=== PATIENT | female | born 1960 | race Caucasian/White ===

== ENCOUNTER 2018-05-16 07:41 | Outpatient (CLI) | payer BC ==
--- NOTE | 2018-05-16 10:11 | ULT ---
ULTRASOUND ABDOMEN COMPLETE: INDICATIONS: Abdominal pain. Palpable mass. TECHNIQUE: Melton-scale ultrasound evaluation of the liver, gallbladder, spleen, pancreas, common bile duct, kidne ys, abdominal aorta, and inferior vena cava (IVC). FINDINGS: No focal hepatic lesion. The gallbladder is not visualized. No overt hydronephrosis of either kidne y. At the site of palpable concern, infrasternal region, there is a focus of altered echotexture, which is heterogeneous and somewhat ill-defined, nonspecific. No abdominal ascites is seen. IMPRESSION: Mass-like, ill-defined region of heterogeneous echotexture at the site of palpable concern, inferior to the sternum. Dedicated CT exam with and without contrast is recommended. CODE T POS: [facility]
--- NOTE | 2018-05-16 12:23 | CT ---
CT ABDOMEN AND PELVIS WITH AND WITHOUT CONTRAST: History: Abdominal pain. Crohn's disease. Comparison: CT angiography, 02-18-16. FINDINGS: Lung bases are clear. No pericardial effusion. Prior cholecystectomy. There is some subtle edema in the proximal small bowel mesentery. There are al so mild increased lymph nodes in the proximal small bowel mesentery. This is unchanged. There is moderate diverticular disease of the sigmoid colon without active current inflammation. Ther e is mild fatty infiltration of the terminal ileum and ascending colon. There is mild hyper enhanceme nt of the terminal 3 cm of the terminal ileum. No evidence for fistula. No evidence for sinus tract. Mild increased mesenteric fat with hyperemia of the mesenteric vessels. No hydronephrosis. The spleen, pancreas, adrenal glands are unremarkable, as well as the liver. IMPRESSION: Mild terminal ileitis. No evidence for a stricture, ulceration, or sinus tract formation. No extraint estinal manifestations of Crohn's disease. POS: [facility]
[2018-05-16] MEDS ORDERED: Iopamidol 370 76% 100 ML VIAL ONE (12:38)
== END 2018-05-16 07:42 | disposition home or self-care (01) ==
LOC: ULT 07:41
PROVIDERS: ATTEND Internal Medicine Gastroenterology
DX: R10.84 Generalized abdominal pain (principal); K50.00 Crohn's disease of small intestine without complications; R19.06 Epigastric swelling, mass or lump
CPT/HCPCS: 74178; 76700

== ENCOUNTER 2018-11-15 07:28 | Outpatient (CLI) | payer BC ==
--- NOTE | 2018-11-15 07:54 | RAD ---
Cervical spine 4 views HISTORY: Neck pain. FINDINGS: Straightening of the normal lordotic curvature. Disc space narrowing at the C5-6 level. Mil d osteophytosis throughout the vertebral bodies and facets. Vertebral body heights are maintained. No acute fracture or dislocation. Cervicothoracic junction is intact. IMPRESSION: Mild osseous degenerative changes of the cervical spine. No acute osseous abnormalities a re demonstrated.
--- NOTE | 2018-11-15 09:25 | CT ---
CT CHEST WITHOUT CONTRAST: Multiple axial tomograms were obtained through the chest without IV enhancement. A low-dose screenin g protocol was followed. INDICATION: Tobacco abuse. Long history of smoking. There is chronic-appearing stranding seen in both upper lobes. No evidence of pulmonary mass or nodu le. No infiltrate or effusion. Mediastinum unremarkable with no evidence of adenopathy. Images thr ough the upper abdomen unremarkable. Osseous structures unremarkable. IMPRESSION: Lung RADS 2. Recommend yearly low-dose screening chest CT. POS: [facility]
== END 2018-11-15 07:29 | disposition home or self-care (01) ==
LOC: CT 07:28
PROVIDERS: ATTEND Family Medicine
DX: F17.210 Nicotine dependence, cigarettes, uncomplicated (principal); M50.90 Cervical disc disorder, unspecified, unspecified cervical region; M47.812 Spondylosis without myelopathy or radiculopathy, cervical region
CPT/HCPCS: 72040; G0297

== ENCOUNTER 2019-11-20 10:43 | Outpatient (CLI) | payer BC ==
--- NOTE | 2019-11-20 11:32 | CT ---
EXAM: CT chest without contrast per low-dose cancer screening protocol HISTORY: History of smoking and nicotine dependence COMPARISON: 11/15/2018 TECHNIQUE: Multiple contiguous axial images were obtained in a CT of the chest without contrast per l ow-dose cancer screening protocol. Sagittal and coronal reformats were performed. FINDINGS: Pulmonary nodules: No suspicious pulmonary nodules are seen. No focal infiltrates are seen. Scarring is seen in the lung apices. Pleural space: No pneumothorax or pleural effusion are seen. Heart: The heart is normal in size. Mediastinum: No hilar or mediastinal lymphadenopathy appreciated on this limited noncontrast examinat ion. Bones: Degenerative changes in the spine.. Visualized subdiaphragmatic structures: Unremarkable. IMPRESSION: Lung RADS category 1-negative.
== END 2019-11-20 10:44 | disposition home or self-care (01) ==
LOC: BICCT 10:43
PROVIDERS: ATTEND Family Medicine
DX: Z12.2 Encounter for screening for malignant neoplasm of respiratory organs (principal); F17.210 Nicotine dependence, cigarettes, uncomplicated
CPT/HCPCS: G0297

== ENCOUNTER 2020-04-17 08:34 | Outpatient (CLI) | payer BC ==
--- NOTE | 2020-04-17 13:30 | NM ---
RADIONUCLIDE GASTRIC EMPTYING SCAN: Date: 04/17/2020 HISTORY: Epigastric pain. RADIOPHARMACEUTICAL: 2 mCi technetium-99m sulfur colloid administered orally in scrambled eggs. FINDINGS: There is 73% emptying of the ingested gastric contents at 1 hour, 95% emptying at 2 hours, and 100% e mptying at 3 hours. The calculated gastric emptying halftime measures 39 minutes. IMPRESSION: Rapid gastric emptying. POS: [facility]
== END 2020-04-17 08:35 | disposition home or self-care (01) ==
LOC: NM 08:34
PROVIDERS: ATTEND Internal Medicine Gastroenterology
DX: R10.13 Epigastric pain (principal); K21.9 Gastro-esophageal reflux disease without esophagitis
CPT/HCPCS: 78264; A9541

== ENCOUNTER 2020-06-09 09:01 | Outpatient (CLI) | payer BC ==
[2020-06-10 07:03] LABS: SARS-CoV-2 PCR by NAA Not Detected (NotDetected)
== END 2020-06-09 09:02 | disposition home or self-care (01) ==
LOC: LABBT 09:01
PROVIDERS: ATTEND Internal Medicine Gastroenterology
DX: Z20.822 Contact with and (suspected) exposure to COVID-19 (principal)
CPT/HCPCS: 87635; U0003; U0005

== ENCOUNTER → 2020-06-13 | Day surgery (SDC) | payer BC ==
[2020-06-12 09:22] VITALS: BMI 32.5
[~2020-06-13] MED LIST: Fentanyl 100 MCG/2 ML VIAL ONE; Magnevist 469MG/ML 20 ML VIAL ONE; Midazolam HCl 2 mg/2 ml Vial ONE; Ondansetron PF 4 MG/2 ML Vial ONE
[2020-06-13 11:43] LABS: Calc. Creatinine Clearance 128 mL/min (70-130)
--- NOTE | 2020-06-13 16:15 | MRI ---
MRI ABDOMEN WITH AND WITHOUT IV CONTRAST: Date: 06/13/2020 HISTORY: 59-year-old female with epigastric pain - intractable. Chronic change pain. FINDINGS: The liver, spleen, pancreas, adrenal glands, and left kidney appear normal. There is a tiny cyst in t he inferomedial cortex of the right kidney with low T1/high T2 signal, and no postcontrast enhancemen t. The biliary tract and pancreatic duct are normal. The patient is post cholecystectomy. No free fluid or lymphadenopathy seen in the abdomen. The bone marrow signal is normal. IMPRESSION: No significant abnormalities are seen. POS: [facility]
== END ==
LOC: SDC/OP 10:06
PROVIDERS: ATTEND Internal Medicine Gastroenterology
DX: R10.13 Epigastric pain (principal); K59.00 Constipation, unspecified; Z88.1 Allergy status to other antibiotic agents; Z88.5 Allergy status to narcotic agent; Z91.040 Latex allergy status
CPT/HCPCS: 74183; 82565; J2250; J2405; J3010

== ENCOUNTER 2020-12-14 15:43 | Emergency (ER) | payer BC ==
[2020-12-14 17:06] LABS: #Eosinphils 0.1 thou/uL (0.0-0.7); #Lymphocytes 1.7 thou/uL (1.20-3.40); #Monocytes 0.8 thou/uL (0.11-0.59); #Neutrophils 7.8 thou/uL (1.40-6.50); %Basophils 0.4 % (0.0-1.0); %Eosinophils 0.8 % (0.0-10.0); %Lymphocytes 16.4 % (21.0-51.0); %Monocytes 7.6 % (0.0-10.0); %Neutrophils 74.8 % (42.0-75.0); Hemoglobin 13.5 g/dL (12.0-16.0); Mean Corpuscular HGB CONC 35.2 g/dL (32.0-36.0); Mean Corpuscular Hemoglobin 31.7 pg (27.0-31.0); Mean Platelet Volume 6.2 fL (7.4-10.4); Platelet Count 347 thou/uL (130-400); RBC Distribution Width 11.8 % (11.5-14.5); Red Blood Cell (RBC) Count 4.28 mill/uL (4.20-5.40); White Blood Cell (WBC) Count 10.4 thou/uL (4.8-10.8)
[2020-12-14 17:24] LABS: Anion Gap 11 mmol/L (10-20); BUN (Urea Nitrogen) 10 mg/dL (9.8-20.1); Calc. Creatinine Clearance 0 mL/min (70-130); Calcium 9.3 mg/dL (7.8-10.44); Carbon Dioxide 25 mmol/L (22-29); Chloride 103 mmol/L (98-107); Glucose 99 mg/dL (70-105); Potassium 3.9 mmol/L (3.5-5.1); Sodium 135 mmol/L (136-145)
[2020-12-14 17:54] LABS: Bacteria/HPF None Seen HPF (None Seen); Bilirubin Negative (Negative); Blood, Urine Trace (Negative); Clarity Clear (Clear); Glucose, Urine (Dipstick) Normal (Negative); Ketone, Urine Negative (Negative); Leukocyte Negative Leu/uL (Negative); Nitrite Negative (Negative); Protein, Urine (Dipstick) Negative (Neg-Trace); RBC/HPF 0-3 HPF (0-3); Specific Gravity, Urine 1.012 (1.002-1.036); Squamous Epithelial 0-3 HPF (0-3); Urobilinogen Normal mg/dL (Less than 2); WBC/HPF 0-3 HPF (0-3); pH, Urine 5.5 (5.0-9.0)
== END 2020-12-14 23:40 | disposition left against medical advice (07) ==
LOC: ERS 15:43
DX: R10.32 Left lower quadrant pain (principal); K21.9 Gastro-esophageal reflux disease without esophagitis; F17.210 Nicotine dependence, cigarettes, uncomplicated; Z79.899 Other long term (current) drug therapy
CPT/HCPCS: 36415; 80048; 81003; 81015; 83690; 85025; 99284

== ENCOUNTER 2021-02-18 10:45 | Outpatient (CLI) | payer BC | END 2021-02-18 10:46 | disposition home or self-care (01) | LOC: BICMAMMO 10:45 | PROVIDERS: ATTEND Family Medicine | DX: Z12.31 Encounter for screening mammogram for malignant neoplasm of breast (principal) | CPT/HCPCS: 77063; 77067 ==

== ENCOUNTER 2021-02-18 11:16 | Outpatient (CLI) | payer BC | END 2021-02-18 11:17 | disposition home or self-care (01) | LOC: BICCT 11:16 | PROVIDERS: ATTEND Family Medicine | DX: Z12.2 Encounter for screening for malignant neoplasm of respiratory organs (principal); F17.210 Nicotine dependence, cigarettes, uncomplicated | CPT/HCPCS: 71271 ==

== ENCOUNTER 2022-03-12 10:10 | Outpatient (CLI) | payer BC | END 2022-03-12 10:11 | disposition home or self-care (01) | LOC: BICCT 10:10 | PROVIDERS: ATTEND Family Medicine | DX: Z12.2 Encounter for screening for malignant neoplasm of respiratory organs (principal); F17.210 Nicotine dependence, cigarettes, uncomplicated | CPT/HCPCS: 71271 ==

== ENCOUNTER 2023-01-24 14:17 | Outpatient (CLI) | payer BC | END 2023-01-24 14:18 | disposition home or self-care (01) | LOC: BICULT 14:17 | PROVIDERS: ATTEND Internal Medicine | DX: R22.1 Localized swelling, mass and lump, neck (principal) | CPT/HCPCS: 76536 ==

== ENCOUNTER 2023-03-16 13:53 | Outpatient (CLI) | payer BC | END 2023-03-16 13:54 | disposition home or self-care (01) | LOC: BICCT 13:53 | PROVIDERS: ATTEND Internal Medicine | DX: Z12.2 Encounter for screening for malignant neoplasm of respiratory organs (principal); F17.210 Nicotine dependence, cigarettes, uncomplicated; Z90.49 Acquired absence of other specified parts of digestive tract | CPT/HCPCS: 71271 ==

== ENCOUNTER 2023-03-22 08:52 | Outpatient (CLI) | payer BC | END 2023-03-22 08:53 | disposition home or self-care (01) | LOC: BICMAMMO 08:52 | PROVIDERS: ATTEND Internal Medicine | DX: Z13.820 Encounter for screening for osteoporosis (principal); Z78.0 Asymptomatic menopausal state | CPT/HCPCS: 77080 ==

== ENCOUNTER 2023-03-28 14:22 | Outpatient (CLI) | payer BC | END 2023-03-28 14:23 | disposition home or self-care (01) | LOC: BICMAMMO 14:22 | PROVIDERS: ATTEND Internal Medicine | DX: M54.50 Low back pain, unspecified (principal); R92.8 Other abnormal and inconclusive findings on diagnostic imaging of breast; M47.816 Spondylosis without myelopathy or radiculopathy, lumbar region | CPT/HCPCS: 72100; 72170; G0279 ==

== ENCOUNTER 2024-04-16 09:42 | Outpatient (CLI) | payer BC | END 2024-04-16 09:43 | disposition home or self-care (01) | LOC: BICCT 09:42 | PROVIDERS: ATTEND Internal Medicine | DX: Z12.2 Encounter for screening for malignant neoplasm of respiratory organs (principal); W19.XXXA Unspecified fall, initial encounter; M16.10 Unilateral primary osteoarthritis, unspecified hip; M47.817 Spondylosis without myelopathy or radiculopathy, lumbosacral region | CPT/HCPCS: 71271; 72100; 72170 ==